=== PATIENT | male | born 1955 | race Caucasian/White ===

== ENCOUNTER 2022-09-11 15:06 | Inpatient (IN) | payer MEDICARE, OTHER ==
--- NOTE | 2022-09-11 15:26 | ED ---
Chest Pain HPI - General Stated Complaint: poss stemi Time Seen by Provider: 09/11/22 15:13 - History of Present Illness Initial Comments: This patient is a 67-year-old man with history of previous coronary artery disease including CABG, who presents to have evaluation of chest pain. He had an episode on Wednesday which was brief, it did recur the following day and then this morning he had more persistent pain so he went to the other hospital, arriving there at 11 AM. The patient states that he was given 4 aspirin at the other hospital and then after workup was transferred here. He states that his symptoms had resolved after the aspirin. Patient found to have troponin 1.01, was started on heparin. He was not having any accompanying symptoms, no dyspnea, diaphoresis, palpitations or lightheadedness, nausea or vomiting. He states that the symptoms are very similar to what he had in 2001 before his bypass MD Complaint: chest pain -: days(s) Onset: during rest Pain Location: substernal Pain Radiation: none Severity: moderate Quality: heaviness Consistency: intermittent, now resolved Improves With: nothing Worsens With: nothing Treatments Prior to Arrival: aspirin, oxygen - Related Data Home Medications Medication Instructions Recorded Confirmed ALPRAZolam [Xanax] 0.25 mg PO BID PRN 09/11/22 09/11/22 Ascorbic Acid [Vitamin C] 1,000 mg PO BID 09/11/22 09/11/22 Aspirin EC [Ecotrin Low Dose] 81 mg PO HS 09/11/22 09/11/22 Atorvastatin [Lipitor] 40 mg PO DAILY 09/11/22 09/11/22 Clopidogrel [Plavix] 75 mg PO DAILY 09/11/22 09/11/22 Famotidine [Pepcid] 20 mg PO DAILY 09/11/22 09/11/22 Liraglutide [Victoza 3-Jad] 1.2 mg SQ DAILY 09/11/22 09/11/22 Losartan/Hydrochlorothiazide 1 tab PO DAILY 09/11/22 09/11/22 [Losartan-Hctz 100-25 mg Tab] Magnesium 300mg 300 mg PO BID 09/11/22 09/11/22 Metoprolol Succinate (ER) [Toprol 100 mg PO DAILY 09/11/22 09/11/22 Xl] Multivitamin/Iron/Folic Acid 1 tab PO DAILY 09/11/22 09/11/22 [Centrum Complete Multivit Tab] Nitroglycerin Sl Tabs [Nitrostat] 0.4 mg SUBLINGUAL Q5M PRN 09/11/22 09/11/22 Churdan-3 Fatty Acids [Churdan-3] 1,000 mg PO BID 09/11/22 09/11/22 Pioglitazone [Actos] 30 mg PO HS 09/11/22 09/11/22 Ubidecarenone [Coenzyme Q10] 10 mg PO DAILY 09/11/22 09/11/22 Vitamin B Complex 1 cap PO DAILY 09/11/22 09/11/22 Zinc Gluconate [Zinc] 50 mg PO BID 09/11/22 09/11/22 glyBURIDE [Diabeta] 1.25 mg PO BID-W/MEALS 09/11/22 09/11/22 metFORMIN HCL [Glucophage] 500 mg PO QID 09/11/22 09/11/22 Allergies Allergy/AdvReac Type Severity Reaction Status Date / Time No Known Allergies Allergy Verified 09/11/22 16:14 Review of Systems ROS Statement: Those systems with pertinent positive or pertinent negative responses have been documented in the HPI. ROS Other: All systems not noted in ROS Statement are negative. Constitutional: Denies: fever, chills Respiratory: Denies: cough, dyspnea Cardiovascular: Reports: chest pain. Denies: palpitations, orthopnea, edema, syncope Gastrointestinal: Denies: abdominal pain, nausea, vomiting, diarrhea Genitourinary: Denies: dysuria, hematuria Musculoskeletal: Denies: back pain Skin: Denies: rash Neurological: Denies: headache, weakness EKG Findings - EKG Results: EKG: interpreted by ERMD, sinus rhythm (Rate 79 bpm) - Blocks, Schuyler, Hypertrophy, ST Abn: AV and intraventricular conduction: intraventricular conduction delay QRS axis and voltage: left axis deviation (-30 to -90) Repolarization changes or abnormalities: ST or T wave suggestive of ischemia (Lateral ST-T wave inversion) General Exam General appearance: alert, in no apparent distress Head exam: Present: atraumatic, normocephalic Eye exam: Present: normal appearance. Absent: scleral icterus, conjunctival injection Neck exam: Present: normal inspection Respiratory exam: Present: normal lung sounds bilaterally. Absent: respiratory distress, wheezes, rales, rhonchi, stridor Cardiovascular Exam: Present: regular rate, normal rhythm, normal heart sounds. Absent: systolic murmur, diastolic murmur, rubs, gallop GI/Abdominal exam: Present: soft. Absent: distended, tenderness, guarding, rebound, rigid, mass, pulsatile mass Extremities exam: Present: normal inspection, normal capillary refill. Absent: pedal edema, calf tenderness Back exam: Present: normal inspection. Absent: CVA tenderness (R), CVA tenderness (L) Neurological exam: Present: alert Skin exam: Present: warm, dry, intact, normal color. Absent: rash Course Vital Signs 09/11/22 15:23 Temperature 98.2 F Pulse Rate 81 Respiratory 18 Rate Blood Pressure 143/77 O2 Sat by Pulse 96 Oximetry Chest Pain MDM - MDM This patient is a 67-year-old man transferred from another hospital to have further cardiology evaluation and treatment. The patient's troponin here is similar to the previous. The case had been discussed with cardiology shortly after arrival and they would like to continue heparin and will see the patient. Case also discussed with admitting physician. Patient had chest x-ray, 1 view, which I interpreted as showing no acute infiltrate, pneumothorax, or congestive heart failure. Was pt. sent in by a medical professional or institution (, PA, PIT AND AUXILIARIES SUPERVISOR, urgent care, hospital, or fdc...) When possible be specific @ -[No] Did you speak to anyone other than the patient for history (EMS, parent, family, police, friend...)? What history was obtained from this source @ -[No] Did you review nursing and triage notes (agree or disagree)? Why? @ -[I reviewed and agree with nursing and triage notes] Were old charts reviewed (outside hosp., previous admission, EMS record, old EKG, old radiological studies, urgent care reports/EKG's, fdc records)? Report findings @ -[ I reviewed the transfer records as well Differential Diagnosis (chest pain, altered mental status, abdominal pain women, abdominal pain men, vaginal bleeding, weakness, fever, dyspnea, syncope, headache, dizziness, GI bleed, back pain, seizure, CVA, palpatations, mental health, musculoskeletal)? @ - Differential Chest Pain: Stable Angina, Unstable Angina, STEMI, NSTEMI Aortic Dissection, Pneumothorax, Musculoskeletal, Esophageal Spasm GERD, Cholecystitis, Pancreatitis, Zoster, this is not meant to be an all-inclusive list. EKG interpreted by me (3pts min.). @ -[As above] X-rays interpreted by me (1pt min.). @ -[As above CT interpreted by me (1pt min.). @ -[None done] U/S interpreted by me (1pt. min.). @ -[None done] What testing was considered but not performed or refused? (CT, X-rays, U/S, labs)? Why? @ -[None] What meds were considered but not given or refused? Why? @ -[None] Did you discuss the management of the patient with other professionals (professionals i.e. Dr., PA, PIT AND AUXILIARIES SUPERVISOR, lab, RT, psych nurse, social media community manager, engineering programmer, teacher, returning officer, family service caseworker)? Give summary @ -[Case discussed with the operator bearer systems and with the admitting physician Was smoking cessation discussed for >3mins.? @ -[No] Was critical care preformed (if so, how long)? @ -[yes, 30 minutes Were there social determinants of health that impacted care today? How? (Homelessness, low income, unemployed, alcoholism, drug addiction, transportation, low edu. Level, literacy, decrease access to med. care, fci, rehab)? @ -[No] Was there de-escalation of care discussed even if they declined (Discuss DNR or withdrawal of care, Hospice)? DNR status @ -[No] What co-morbidities impacted this encounter? (DM, HTN, Smoking, COPD, CAD, Cancer, CVA, ARF, Chemo, Hep., AIDS, mental health diagnosis, sleep apnea, morbid obesity)? @ -[None] Was patient admitted / discharged? Hospital course, mention meds given and route, prescriptions, significant lab abnormalities, going to OR and other pertinent info. @ -[Admitted Undiagnosed new problem with uncertain prognosis? @ -[No] Drug Therapy requiring intensive monitoring for toxicity (Heparin, Nitro, Insulin, Cardizem)? @ -[No] Were any procedures done? @ -[No] Diagnosis/symptom? @ -[Acute NSTEMI, uncomplicated Acute, or Chronic, or Acute on Chronic? @ -[default] Uncomplicated (without systemic symptoms) or Complicated (systemic symptoms)? @ -[default] Side effects of treatment? @ -[No] Exacerbation, Progression, or Severe Exacerbation? @ -[No] Poses a threat to life or bodily function? How? (Chest pain, [place], DC, pneumonia, PE, COPD, DKA, ARF, appy, cholecystitis, CVA, Diverticulitis, Homicidal, Suicidal, threat to staff... and all critical care pts) @ -[yes Critical Care Time Critical Care Time: Yes (30 minutes) Disposition Clinical Impression: NSTEMI (non-ST elevated myocardial infarction) Disposition: ADMITTED IP TO THIS HOSP Condition: Stable Instructions (If sedation given, give patient instructions): Chest Pain (ED) Is patient prescribed a controlled substance at d/c from ED?: No Referrals: Nonstaff,Physician [Primary Care Provider] - 1-2 days
[2022-09-11] MEDS ORDERED: HEPARIN SODIUM 1,000 UN/ML (10ML VL) IV PRN (16:01)
--- NOTE | 2022-09-11 16:06 | XR ---
EXAMINATION TYPE: XR chest 1V portable DATE OF EXAM: 09/11/2022 3:58 PM COMPARISON: None TECHNIQUE: XR chest 1V portable Portable AP radiograph of the chest. CLINICAL INDICATION:Male, 67 years old with history of chest pain; FINDINGS: Lungs/Pleura: There is no evidence of pleural effusion, focal consolidation, or pneumothorax. Pulmonary vascularity: Unremarkable. Heart/mediastinum: Cardiomediastinal silhouette is enlarged. Musculoskeletal: No acute osseous pathology. Midline sternotomy wires are noted. Other findings: None IMPRESSION: Cardiomegaly without evidence for acute process.
[2022-09-11 16:07] LABS: INR 0.9 (<1.2); Partial Thromboplastin Time 30.3 sec (22.0-30.0); Prothrombin Time 9.9 sec (9.0-12.0)
[2022-09-11 16:10] LABS: Albumin 4.6 g/dL (3.5-5.0); Calcium 10.1 mg/dL (8.4-10.2); Magnesium 1.8 mg/dL (1.6-2.3); Potassium 4.4 mmol/L (3.5-5.1); Total Bilirubin 0.5 mg/dL (0.2-1.3); Total Protein 7.6 g/dL (6.3-8.2)
[2022-09-11 16:15] LABS: Basophils # (A) 0.1 k/uL (0-0.2); Basophils % (A) 1 %; Eosinophils # (A) 0.1 k/uL (0-0.7); Eosinophils % (A) 2 %; HCT 39.5 % (39.0-53.0); Lymphocytes # (A) 2.1 k/uL (1.0-4.8); Lymphocytes % (A) 31 %; MCH 31.2 pg (25.0-35.0); MCHC 35.4 g/dL (31.0-37.0); MCV 88.3 fL (80.0-100.0); Mean Platelet Volume 8.2; Monocytes # (A) 0.5 k/uL (0-1.0); Monocytes % (A) 7 %; Neutrophils # (A) 3.8 k/uL (1.3-7.7); Neutrophils % (A) 55 %; Platelet Count 277 k/uL (150-450); RBC 4.48 m/uL (4.30-5.90); RDW 13.7 % (11.5-15.5); WBC 6.9 k/uL (3.8-10.6)
[2022-09-11] MEDS: HEPARIN SOD,PORK IN 0.45% NACL 25,000 UNIT in 0.45% NACL 1 250ML.BAG IV SCH (16:16)
[2022-09-11] MEDS ORDERED: NITROGLYCERIN SL TABS 0.4 MG TAB SUBLINGUAL PRN (16:57)
[2022-09-11] MEDS ORDERED: ALPRAZolam 0.25 MG TAB PO PRN (16:59)
[2022-09-11] MEDS: metFORMIN 500 MG TAB PO SCH ×2 (18:32→21:00)
[2022-09-11 18:49] VITALS: RESP 16
[2022-09-11 19:48] LABS: Glucose,Whole Blood 139 mg/dL (70-110)
[2022-09-11] MEDS: ASCORBIC ACID 500 MG TAB PO SCH (20:59)
[2022-09-11] MEDS: MAGNESIUM OXIDE 400 MG TAB PO SCH (21:00)
[2022-09-11] MEDS: PIOGLITAZONE 30 MG TAB PO SCH (21:00)
[2022-09-11] MEDS ORDERED: NON FORMULARY DRUG (Aspirin Ec 81 MG Tablet) PO SCH (21:00)
[2022-09-12 05:59] LABS: Basophils # (A) 0.1 k/uL (0-0.2); Basophils % (A) 1 %; Eosinophils # (A) 0.2 k/uL (0-0.7); Eosinophils % (A) 3 %; HCT 38.4 % (39.0-53.0); HGB 13.3 gm/dL (13.0-17.5); Lymphocytes # (A) 2.3 k/uL (1.0-4.8); Lymphocytes % (A) 34 %; MCHC 34.7 g/dL (31.0-37.0); MCV 89.3 fL (80.0-100.0); Mean Platelet Volume 7.6; Monocytes # (A) 0.5 k/uL (0-1.0); Monocytes % (A) 8 %; Neutrophils # (A) 3.5 k/uL (1.3-7.7); Neutrophils % (A) 51 %; Platelet Count 240 k/uL (150-450); RDW 13.6 % (11.5-15.5); WBC 6.8 k/uL (3.8-10.6)
[2022-09-12 06:07] LABS: Glucose,Whole Blood 154 mg/dL (70-110)
[2022-09-12 06:07] LABS: Partial Thromboplastin Time 37.6 sec (22.0-30.0); Prothrombin Time 10.5 sec (9.0-12.0)
[2022-09-12] MEDS: ASPIRIN 325 MG TAB PO SCH (08:32)
[2022-09-12] MEDS: CLOPIDOGREL 75 MG TAB PO SCH (08:32)
[2022-09-12] MEDS: ASCORBIC ACID 500 MG TAB PO SCH ×2 (08:32→20:44)
[2022-09-12] MEDS: ZINC SULFATE 220 MG CAP PO SCH (08:32)
[2022-09-12] MEDS: METOPROLOL SUCCINATE (ER) 100 MG TAB.ER.24H PO SCH (08:32)
[2022-09-12] MEDS: ATORVASTATIN 40 MG TAB PO SCH (08:32)
[2022-09-12] MEDS: FAMOTIDINE 20 MG TAB PO SCH (08:32)
[2022-09-12] MEDS: NON FORMULARY DRUG (Liraglutide [Victoza 3-Pak] 0.6 MG/0.1 ML Ml) SQ SCH (08:33)
[2022-09-12] MEDS: MAGNESIUM OXIDE 400 MG TAB PO SCH ×2 (08:33→20:44)
[2022-09-12] MEDS: metFORMIN 500 MG TAB PO SCH ×2 (08:33→12:53)
[2022-09-12] MEDS: LOSARTAN-HCTZ 50-12.5 MG 1 EACH TAB PO SCH (08:34)
[2022-09-12] MEDS ORDERED: ALPRAZolam 0.25 MG TAB PO PRN (08:53)
[2022-09-12] MEDS ORDERED: ATORVASTATIN 40 MG TAB PO STA (08:53)
[2022-09-12] MEDS ORDERED: NITROGLYCERIN SL TABS 0.4 MG TAB SUBLINGUAL PRN ×2 (08:53→12:59)
[2022-09-12] MEDS ORDERED: ASPIRIN 325 MG TAB PO STA (08:53)
[2022-09-12] MEDS ORDERED: ALPRAZolam 0.5 MG TAB PO PRN (08:53)
--- NOTE | 2022-09-12 09:11 | P.CRDCN ---
History of Present Illness Consult date: 09/12/22 Consult reason: chest pain Chief complaint: chest pains History of present illness: History of present illness: This pleasant 67-year-old male with significant past medical history of CABG in 2001, CAD with 3 stents since his bypass surgery most recent was last October 2021, hypertension, diabetes, hyperlipidemia who was transferred from outside hospital for chest pain and elevated troponins. He reports that he began having chest pressure 3 days ago that occurred at rest. He then had continued recurrence for the past 2 days with yesterday's episode lasting for a couple hours and did not resolve until he was given aspirin in the emergency department. He does state that this chest pain is similar to before he had his CABG. He also believes that one of his CABG vessels with occluded. All of his heart care was done at [facility]. Troponins elevated at 0.645, 1.010, 0.963. EKG shows sinus rhythm with ST depressions in the lateral leads. Chest x-ray reveals cardiomegaly without evidence for acute process. Currently he denies any chest pain, shortness of breath, palpitations, dizziness, syncope. REVIEW OF SYSTEMS: No fever or chills. No cough or expectoration. No diaphoresis. Patient denies headache, dizziness, blurred vision, double vision. Patient denies any stomach discomfort. No nausea, vomiting. No hematochezia. No hematemesis. Denies any black stools or blood in his stools. Denies dysuria or hematuria. No muscle weakness or numbness. No chest pain or pressure. PHYSICAL EXAMINATION: This is a 67 year-old female in no apparent distress at the time of my examination. HEENT: Head is atraumatic, normocephalic. Pupils are equal, round. Sclerae anicteric. Conjunctivae are clear. Mucous membranes of the mouth are moist. Neck is supple. There is no jugular venous distention. No carotid bruit is heard. CHEST EXAMINATION: Lungs are clear to auscultation. No chest wall tenderness is noted on palpation or with deep breathing. HEART EXAMINATION: Heart regular rate and rhythm. S1, S2 heard. No murmurs, gallops or rub. ABDOMEN: Soft, nontender. Bowel sounds are heard. EXTREMITIES: 2+ peripheral pulses with no evidence of peripheral edema and no calf tenderness noted. NEUROLOGIC EXAMINATION: Patient is awake, alert and oriented x3. IMPRESSION AND PLAN: 1. NSTEMI 2. Chest pains 3. CAD s/p CABG and PCI x3 4. Hypertension 5. Diabetes type 2 PLAN: We will request records from [facility]. This pain is concerning for unstable angina. Plan to proceed with heart catheterization to eval for new blockages. Risks and benefits discussed with patient and he agrees to proceed. We will check an echo to assess heart function and structure. Continue heparin drip at this time. Continue current medications. Nothing by mouth for procedure. Further recommendations post heart cath. I am dictating on behalf of Dr. Kar Lafleur's history/physical and assessme nt/plan. Past Medical History Past Medical History: Diabetes Mellitus, Hyperlipidemia, Hypertension Additional Past Medical History / Comment(s): sleep apne History of Any Multi-Drug Resistant Organisms: None Reported Past Surgical History: Coronary Bypass/CABG, Heart Catheterization With Stent Past Anesthesia/Blood Transfusion Reactions: No Reported Reaction Date of Last Stent Placement:: 11/16 Past Psychological History: No Psychological Hx Reported Smoking Status: Former smoker Past Alcohol Use History: None Reported, Rare Past Drug Use History: None Reported - Past Family History Sister(s) History Unknown: Yes Additional Family Medical History / Comment(s): bypass,diabetic Brother(s) History Unknown: Yes Additional Family Medical History / Comment(s): valve,diabetic Medications and Allergies Home Medications Medication Instructions Recorded Confirmed Type ALPRAZolam [Xanax] 0.25 mg PO BID PRN 09/11/22 09/11/22 History Ascorbic Acid [Vitamin C] 1,000 mg PO BID 09/11/22 09/11/22 History Aspirin EC [Ecotrin Low Dose] 81 mg PO HS 09/11/22 09/11/22 History Atorvastatin [Lipitor] 40 mg PO DAILY 09/11/22 09/11/22 History Clopidogrel [Plavix] 75 mg PO DAILY 09/11/22 09/11/22 History Famotidine [Pepcid] 20 mg PO DAILY 09/11/22 09/11/22 History Liraglutide [Victoza 3-Jad] 1.2 mg SQ DAILY 09/11/22 09/11/22 History Losartan/Hydrochlorothiazide 1 tab PO DAILY 09/11/22 09/11/22 History [Losartan-Hctz 100-25 mg Tab] Magnesium 300mg 300 mg PO BID 09/11/22 09/11/22 History Metoprolol Succinate (ER) [Toprol 100 mg PO DAILY 09/11/22 09/11/22 History Xl] Multivitamin/Iron/Folic Acid 1 tab PO DAILY 09/11/22 09/11/22 History [Centrum Complete Multivit Tab] Nitroglycerin Sl Tabs [Nitrostat] 0.4 mg SUBLINGUAL Q5M PRN 09/11/22 09/11/22 History Nelson-3 Fatty Acids [Nelson-3] 1,000 mg PO BID 09/11/22 09/11/22 History Pioglitazone [Actos] 30 mg PO HS 09/11/22 09/11/22 History Ubidecarenone [Coenzyme Q10] 10 mg PO DAILY 09/11/22 09/11/22 History Vitamin B Complex 1 cap PO DAILY 09/11/22 09/11/22 History Zinc Gluconate [Zinc] 50 mg PO BID 09/11/22 09/11/22 History glyBURIDE [Diabeta] 1.25 mg PO BID-W/MEALS 09/11/22 09/11/22 History metFORMIN HCL [Glucophage] 500 mg PO QID 09/11/22 09/11/22 History Allergies Allergy/AdvReac Type Severity Reaction Status Date / Time No Known Allergies Allergy Verified 09/11/22 16:14 Physical Exam Vitals: Vital Signs Temp Pulse Pulse Resp BP BP Pulse Ox 09/12/22 08:00 77 16 140/71 96 09/12/22 03:11 98.2 F 83 16 146/75 96 09/12/22 00:00 98.1 F 84 16 125/69 95 09/11/22 19:44 98.0 F 95 16 160/75 94 L 09/11/22 18:49 97.8 F 86 16 114/66 96 09/11/22 15:23 98.2 F 81 18 143/77 96 Intake and Output 09/11/22 09/12/22 09/12/22 22:59 06:59 14:59 Intake Total 64.833 95.764 Balance 64.833 95.764 Intake: Intake, IV Titration 64.833 95.764 Amount Heparin Sod,Pork in 0.45% 64.833 95.764 NaCl 25,000 unit In 0.45 % NaCl 1 250ml.bag @ 10. 302 UNITS/KG/HR 10 mls/hr IV .Q24H [facility] Rx#: [id number] Other: Voiding Method Toilet Toilet # Voids 2 Weight 97.2 kg Results 09/12/22 05:40 09/11/22 15:27 Cardiac Enzymes 09/11/22 09/11/22 09/11/22 Range/Units 15:27 15: 17:46 AST 55 (17-59) U/L Troponin I 0.963 H* 1.010 H* (0.000-0.034) ng/mL 09/11/22 Range/Units 21:33 AST (17-59) U/L Troponin I 0.645 H* (0.000-0.034) ng/mL Coagulation 09/11/22 09/11/22 09/12/22 Range/Units 15:27 21:33 05:40 PT 9.9 10.5 (9.0-12.0) sec APTT 30.3 H 28.0 37.6 H (22.0-30.0) sec CBC 09/11/22 09/12/22 Range/Units 15:27 05:40 WBC 6.9 6.8 (3.8-10.6) k/uL RBC 4.48 4.30 (4.30-5.90) m/uL Hgb 14.0 13.3 (13.0-17.5) gm/dL Hct 39.5 38.4 L (39.0-53.0) % Plt Count 277 240 (150-450) k/uL Comprehensive Metabolic Panel 09/11/22 Range/Units 15:27 Sodium 138 (137-145) mmol/L Potassium 4.4 (3.5-5.1) mmol/L Chloride 97 L (98-107) mmol/L Carbon Dioxide 28 (22-30) mmol/L BUN 22 H (9-20) mg/dL Creatinine 1.03 (0.66-1.25) mg/dL Glucose 129 H (74-99) mg/dL Calcium 10.1 (8.4-10.2) mg/dL AST 55 (17-59) U/L ALT 40 (4-49) U/L Alkaline Phosphatase 48 (38-126) U/L Total Protein 7.6 (6.3-8.2) g/dL Albumin 4.6 (3.5-5.0) g/dL Current Medications Generic Name Dose Route Start Last Admin Trade Name Freq PRN Reason Stop Dose Admin Alprazolam 0.25 mg 09/12/22 08:53 Alprazolam 0.25 Mg Tab PO Q6HR PRN Mild Anxiety Alprazolam 0.5 mg 09/12/22 08:53 Alprazolam 0.5 Mg Tab PO Q6HR PRN Moderate Anxiety Ascorbic Acid 1,000 mg 09/11/22 21:00 09/12/22 08:32 Ascorbic Acid 500 Mg Tab PO 1,000 mg BID NAHOMY Administration Aspirin 325 mg 09/12/22 09:00 09/12/22 08:32 Aspirin 325 Mg Tab PO 325 mg DAILY NAHOMY Administration Atorvastatin Calcium 40 mg 09/12/22 09:00 09/12/22 08:32 Atorvastatin 40 Mg Tab PO 40 mg DAILY NAHOMY Administration Clopidogrel Bisulfate 75 mg 09/12/22 09:00 09/12/22 08:32 Clopidogrel 75 Mg Tab PO 75 mg DAILY NAHOMY Administration Famotidine 20 mg 09/12/22 09:00 09/12/22 08:32 Famotidine 20 Mg Tab PO 20 mg DAILY NAHOMY Administration Glipizide 2.5 mg 09/11/22 19:00 09/12/22 06:43 Glipizide 2.5 Mg Tab PO 2.5 mg BID-W/MEALS NAHOMY Administration HCTZ/Losartan Potassium 2 each 09/12/22 09:00 09/12/22 08:34 Losartan-Hctz 50-12.5 Mg 1 Each Tab PO 2 each DAILY NAHOMY Administration Heparin Sodium (Porcine) 0 unit 09/11/22 16:01 09/11/22 22:52 Heparin Sodium 1,000 Un/Ml (10ml Vl) IV 4,000 unit PER PROTOCOL PRN Administration Low PTT Protocol Heparin Sodium/Sodium Chloride 250 mls @ 10 mls/hr 09/11/22 16:15 09/12/22 06 :10 25,000 unit/ Sodium Chloride IV 15.302 units/kg/hr .Q24H NAHOMY 14.853 mls/hr Titration Protocol 10.302 UNITS/KG/HR Heparin Sodium (Porcine) 10, 1,001 mls @ 999 mls/hr 09/13/22 07:00 000 unit/ Sodium Chloride IRRIGATION 09/13/22 23:00 ONCE PRN INTRA-OP Heparin Sodium (Porcine) 2,500 250.5 mls @ 250 mls/hr 09/13/22 07:00 unit/ Sodium Chloride IRRIGATION 09/13/22 23:00 ONCE PRN INTRA-OP Magnesium Oxide 400 mg 09/11/22 21:00 09/12/22 08:33 Magnesium Oxide 400 Mg Tab PO 400 mg BID NAHOMY Administration Metformin HCl 500 mg 09/11/22 18:00 09/12/22 08:33 Metformin 500 Mg Tab PO 500 mg QID NAHOMY Administration Metoprolol Succinate 100 mg 09/12/22 09:00 09/12/22 08:32 Metoprolol Succinate (Er) 100 Mg Tab.Er.24h PO 100 mg DAILY NAHOMY Administration Nitroglycerin 0.4 mg 09/12/22 08:53 Nitroglycerin Sl Tabs 0.4 Mg Tab SUBLINGUAL Q5M PRN Chest Pain Non-Formulary Medication 1.2 mg 09/12/22 09:00 09/12/22 08:33 Liraglutide [Victoza 3-Jad] SQ Not Given DAILY NAHOMY Pioglitazone HCl 30 mg 09/11/22 21:00 09/11/22 21:00 Pioglitazone 30 Mg Tab PO 30 mg HS NAHOMY Administration Zinc Sulfate 220 mg 09/12/22 09:00 09/12/22 08:32 Zinc Sulfate 220 Mg Cap PO 220 mg DAILY NAHOMY Administration Intake and Output 09/11/22 09/12/22 09/12/22 22:59 06:59 14:59 Intake Total 64.833 95.764 Balance 64.833 95.764 Intake: Intake, IV Titration 64.833 95.764 Amount Heparin Sod,Pork in 0.45% 64.833 95.764 NaCl 25,000 unit In 0.45 % NaCl 1 250ml.bag @ 10. 302 UNITS/KG/HR 10 mls/hr IV .Q24H [facility] Rx#: [id number] Other: Voiding Method Toilet Toilet # Voids 2 Weight 97.2 kg 09/12/22 05:40 09/11/22 15:27
[2022-09-12] MEDS: HEPARIN SOD,PORK IN 0.45% NACL 25,000 UNIT in 0.45% NACL 1 250ML.BAG IV SCH (09:13)
[2022-09-12 09:47] LABS: Chol/HDL Ratio 3.17 Ratio; LDL Cholesterol,Calculated 32.9 mg/dL (0.0-131.0)
[2022-09-12] MEDS ORDERED: VERAPAMIL 2.5 MG/ML 2 ML AMP ONE (10:49)
[2022-09-12] MEDS ORDERED: fentaNYL (PF) 50 MCG/ML 2 ML AMP ONE (10:49)
[2022-09-12] MEDS ORDERED: SODIUM CHLORIDE 0.9% 500 ML 500 ML IV ONE (11:20)
[2022-09-12] MEDS: MIDAZOLAM 2 MG/2 ML VIAL IVP ONE ×2 (11:26→11:30)
[2022-09-12] MEDS ORDERED: fentaNYL (PF) 50 MCG/ML 2 ML AMP IVP ONE (11:26)
[2022-09-12] MEDS ORDERED: LIDOCAINE 1% INJ 10MG/ML (5 ML VIAL-PF) SQ ONE (11:28)
[2022-09-12] MEDS ORDERED: VERAPAMIL SYRINGE (5 MG/10 ML) INTRAARTER ONE (11:29)
[2022-09-12] MEDS: HEPARIN SODIUM 1,000 UN/ML (10ML VL) IVP ONE ×3 (11:34→11:56)
[2022-09-12] MEDS ORDERED: IOPAMIDOL-300 100ML BTL INJ ONE (11:50)
[2022-09-12] MEDS ORDERED: SODIUM CHLORIDE 0.9% 1,000 ML IV ONE (11:59)
--- NOTE | 2022-09-12 12:36 | P.PRCINT ---
Percutaneous Coronary Int. - Percutaneous Coronary Intervention Percutaneous Coronary Intervention: PROCEDURES PERFORMED: Left heart catheterization, bilateral coronary angiography, SVG to OM2, SVG to RCA angiography, PCI proximal to mid OM2 with a 2.5 x 12mm Xience RUDOLPH INDICATION: NSTEMI HISTORY: Patient is a pleasant 67-year-old male with history of coronary artery disease status post CABG. Only remaining grafts are SVG to OM 2 and SVG to RCA with JAVIER to LAD known to be occluded as well as SVG to diagonal occluded. Patient presented with chest pain similar to his prior angina and found to have non-STEMI. He did have recent stenting of the anastomosis of the SVG to OM 2 and October 2021. CONSENT:I have discussed the risks, benefits and alternative therapies for the above-mentioned procedure and for both sedation/analgesia as well as necessary blood product administration, if indicated, as they pertain to this patient. The patient has indicated understanding and acceptance of the risks and procedures discussed. PROCEDURE: After the risks, benefits and alternatives of the above mentioned procedure explained in detail with the patient, informed consent was obtained. Patient was taken to the catheterization lab and prepped and draped in usual fashion. 1% lidocaine was used to anesthetize the right radial artery. A 6- [place] sheath was placed in the left radial artery using modified Seldinger technique. Left coronary angiography was performed with a 5-Cam[place] JL 3.5 catheter and right coronary angiography was performed with a 5-[place] JR5 catheter in various views. A 5-[place] FR5 catheter was inserted into the left ventricle and pressure measurements were obtained. SVG to RCA angiography was performed with a multipurpose catheter. SVG to OM 2 angiography was somewhat difficult to perform with subselective shots and therefore a 0.014 wire was placed through a AR2 guide to selectively engage the artery. Angiography showed a 99% on 2 stenosis and therefore intervention was recommended. The decision was made to perform PCI of the OM 2 branch. The 6-Cam[place] AR 2 guide with the help of a guideliner was used to engage the SVG. The 0.014 BMW wire was advanced in the distal OM 2. Balloon angioplasty was performed with a 2.5 x 12 mm balloon. Next a 2.5 x 12 mm Xience RUDOLPH was placed in the proximal to mid OM2, overlapping with the previous stent. The wire was then removed. Final angiograms were performed. Preintervention there is 99% stenosis with DARRYN 2 flow and postintervention there was 0% stenosis with DARRYN 3 flow. The left radial sheath was removed and a TR band was placed with hemostasis achieved. The patient tolerated the procedure well. Patient was transported back to the post catheterization holding area in stable condition. Conscious Sedation: Patient was monitored under the direct supervision of vision of myself for conscious sedation using Versed and fentanyl for a total duration of 54 minutes HEMODYNAMICS: Aorta: 120/2 LVEDP 10 SELECTIVE CORONARY ARTERIOGRAPHY: LEFT MAIN: The left main is a large caliber vessel which bifurcates into the LAD and circumflex. There is ostial left main 60-70% stenosis which is similar to prior report from October 2021. There was dampening of a 5-Cam[place]onian catheter. LEFT ANTERIOR DESCENDING CORONARY ARTERY: LAD is a large caliber vessel which wraps around to the apex. There are patent proximal and mid LAD stents. There are otherwise mild luminal irregularities. There are [id number] collaterals to what appears to be a small marginal or PLV branch. LEFT CIRCUMFLEX CORONARY ARTERY: Left circumflex is 100% occluded proximally. RIGHT CORONARY ARTERY: The right coronary artery is a moderate caliber vessel which gives off a PDA and PLV branch and is the dominant vessel. There is 100% proximal RCA stenosis. JAVIER to LAD: Known to be occluded, not imaged SVG to diagonal: Known to be occluded, not imaged SVG to OM 2: SVG is patent however OM 2 has a 99% stenosis at the distal end of prior stent SVG to RCA: Widely patent with mild luminal irregularities of the PDA and PLV. FINAL IMPRESSION: 1. Severe [place] CAD as described above including 60-70% left main stenosis (similar to prior imaging 11/16), 100% circumflex stenosis, 100% RCA stenosis 2. Patent SVG to OM 2 and SVG to RCA with known occluded JAVIER to LAD and SVG to diagonal branch 3. 99% OM 2 stenosis status post PCI proximal to mid OM2 with a 2.5 x 12mm Xience RUDOLPH 4. Normal left sided filling pressures PLAN: 1. Aggressive risk factor modification per most recent ACC/AHA guidelines. 2. Continue dual antiplatelets with aspirin and Plavix. 3. If still having angina, may consider PCI left main.
[2022-09-12 12:42] LABS: Glucose,Whole Blood 118 mg/dL (70-110)
[2022-09-12] MEDS ORDERED: RX INFO: IV CONTRAST WAS GIVEN 1 EACH MISC MISCELLANE PRN (12:59)
[2022-09-12] MEDS ORDERED: ATROPINE SULFATE 0.1 MG/ML 10ML SYRINGE IV PRN (12:59)
[2022-09-12] MEDS ORDERED: MAG HYDROX/AL HYDROX/SIMETH 30 ML CUP PO PRN (12:59)
[2022-09-12] MEDS ORDERED: ZOLPIDEM 5 MG TAB PO PRN (12:59)
--- NOTE | 2022-09-12 15:51 | CA ---
Transthoracic Echo Report Name: Inocente Donis Age: 67 Gender: M : 1955 Exam Date: 09/12/2022 13:18 Exam Location: [facility] Ht (in): 67 Wt (lb): 214 Ordering Physician: Shelbi Gomez Attending/Referring Phys: Metal Tile Setter Khoa Serrato RDCS Procedure CPT: Indications: NSTEMI, chest pain Technical Quality: Fair Contrast 1: Total Dose (mL): Contrast 2: Total Dose (mL): MEASUREMENTS (Male / Female) Normal Values 2D ECHO LV Diastolic Diameter PLAX 4.5 cm 4.2 - 5.9 / 3.9 - 5.3 cm LV Systolic Diameter PLAX 3.3 cm IVS Diastolic Thickness 1.5 cm 0.6 - 1.0 / 0.6 - 0.9 cm LVPW Diastolic Thickness 1.4 cm 0.6 - 1.0 / 0.6 - 0.9 cm LV Relative Wall Thickness 0.6 RV Internal Dim ED PLAX 2.6 cm LVOT Diameter 2.0 cm LA Systolic Diameter LX 3.7 cm 3.0 - 4.0 / 2.7 - 3.8 cm LV Diastolic Volume MOD BP 101.0 cm??? 67 - 155 / 56 - 104 cm??? LV Systolic Volume MOD BP 53.0 cm??? 22 - 58 / 19 - 49 cm??? LV Ejection Fraction MOD BP 47.5 % >= 55 % LV Diastolic Volume MOD 4C 119.8 cm??? LV Systolic Volume MOD 4C 54.2 cm??? LV Ejection Fraction MOD 4C 54.7 % LV Diastolic Length 4C 8.5 cm LV Systolic Length 4C 7.2 cm LV Diastolic Volume MOD 2C 82.5 cm??? LV Systolic Volume MOD 2C 46.6 cm??? LV Ejection Fraction MOD 2C 43.5 % LV Diastolic Length 2C 8.1 cm LV Systolic Length 2C 6.3 cm Ascending Aorta Diameter 2.6 cm M-MODE Aortic Root Diameter MM 3.3 cm LA Systolic Diameter MM 4.1 cm LA Ao Ratio MM 1.2 MV E Point Septal Separation 1.0 cm AV Cusp Separation MM 1.9 cm DOPPLER AV Peak Velocity 115.4 cm/s AV Peak Gradient 5.3 mmHg AI Peak Velocity 286.6 cm/s AI Peak Gradient 32.9 mmHg AI Pressure Half Time 698.4 ms MV Peak Velocity 84.7 cm/s MV Peak Gradient 2.9 mmHg MV Mean Velocity 55.1 cm/s MV Mean Gradient 1.3 mmHg MV Velocity Time Integral 20.4 cm Mitral E Point Velocity 82.0 cm/s Mitral A Point Velocity 86.5 cm/s Mitral E to A Ratio 0.9 MV Deceleration Time 161.6 ms MV E' Velocity 5.8 cm/s Mitral E to MV E' Ratio 14.2 TR Peak Velocity 204.3 cm/s TR Peak Gradient 16.7 mmHg Right Ventricular Systolic Press 71.7 mmHg PV Peak Velocity 109.4 cm/s PV Peak Gradient 4.8 mmHg FINDINGS Left Ventricle Left ventricular ejection fraction is estimated at 55-60 %.mild concentric left ventricular hypertrophy. Grade 2 diastolic dysfunction. Right Ventricle Normal right ventricular size and function. Right Atrium Normal right atrial size. Left Atrium Normal left atrial size. Mitral Valve Mitral valve thickened. Trace mitral regurgitation Aortic Valve Trileaflet aortic valve. Diffuse thickening (sclerosis) of the aortic valve cusps without reduced excursion. Mild aortic regurgitation. Tricuspid Valve Mild tricuspid regurgitation. Pulmonic Valve Structurally normal pulmonic valve. Pericardium Normal pericardium. No pericardial effusion. Aorta Normal size aortic root and proximal ascending aorta. CONCLUSIONS Left ventricular ejection fraction 55-60% Mild left ventricular hypertrophy Trace mitral regurgitation Mild aortic regurgitation Mild tricuspid regurgitation No pericardial effusion Previewed by: Dr. Kar Lafleur DO (Electronically Signed) Final Date: 12 September 2022 15:51
[2022-09-12 16:38] LABS: Glucose,Whole Blood 121 mg/dL (70-110)
[2022-09-12 20:07] LABS: Glucose,Whole Blood 186 mg/dL (70-110)
--- NOTE | 2022-09-12 20:12 | P.HPIM ---
History of Present Illness H&P Date: 09/11/22 Chief Complaint: poss stemi 67-year-old man with history of previous coronary artery disease including CABG, who presents to have evaluation of chest pain. He had an episode on Wednesday which was brief, it did recur the following day and then this morning he had more persistent pain so he went to the other hospital, arriving there at 11 AM. The patient states that he was given 4 aspirin at the other hospital and then after workup was transferred here. He states that his symptoms had resolved after the aspirin. Patient found to have troponin 1.01, was started on heparin. He was not having any accompanying symptoms, no dyspnea, diaphoresis, palpitations or lightheadedness, nausea or vomiting. He states that the symptoms are very similar to what he had in 2001 before his bypass He does state that this chest pain is similar to before he had his CABG. He also believes that one of his CABG vessels with occluded. All of his heart care was done at [facility]. Troponins elevated at 0.645, 1.010, 0.963. EKG shows sinus rhythm with ST depressions in the lateral leads. Chest x-ray reveals cardiomegaly without evidence for acute process. Currently he denies any chest pain, shortness of breath, palpitations, dizziness, syncope. Review of Systems REVIEW OF SYSTEMS: CONSTITUTIONAL: No fever, no malaise, no fatigue. HEENT: No recent visual problems or hearing problems. Denied any sore throat. CARDIOVASCULAR: No chest pain, orthopnea, PND, no palpitations, no syncope. PULMONARY: No shortness of breath, no cough, no hemoptysis. GASTROINTESTINAL: No diarrhea, no nausea, no vomiting, no abdominal pain. NEUROLOGICAL: No headaches, no weakness, no numbness. HEMATOLOGICAL: Denies any bleeding or petechiae. GENITOURINARY: Denies any burning micturition, frequency, or urgency. MUSCULOSKELETAL/RHEUMATOLOGICAL: Denies any joint pain, swelling, or any muscle pain. ENDOCRINE: Denies any polyuria or polydipsia. The rest of the 14-point review of systems is negative. Past Medical History Past Medical History: Diabetes Mellitus, Hyperlipidemia, Hypertension Additional Past Medical History / Comment(s): sleep apne History of Any Multi-Drug Resistant Organisms: None Reported Past Surgical History: Coronary Bypass/CABG, Heart Catheterization With Stent Past Anesthesia/Blood Transfusion Reactions: No Reported Reaction Date of Last Stent Placement:: 11/16 Past Psychological History: No Psychological Hx Reported Smoking Status: Former smoker Past Alcohol Use History: None Reported, Rare Past Drug Use History: None Reported - Past Family History Sister(s) History Unknown: Yes Additional Family Medical History / Comment(s): bypass,diabetic Brother(s) History Unknown: Yes Additional Family Medical History / Comment(s): valve,diabetic Medications and Allergies Home Medications Medication Instructions Recorded Confirmed Type ALPRAZolam [Xanax] 0.25 mg PO BID PRN 09/11/22 09/11/22 History Ascorbic Acid [Vitamin C] 1,000 mg PO BID 09/11/22 09/11/22 History Aspirin EC [Ecotrin Low Dose] 81 mg PO HS 09/11/22 09/11/22 History Atorvastatin [Lipitor] 40 mg PO DAILY 09/11/22 09/11/22 History Clopidogrel [Plavix] 75 mg PO DAILY 09/11/22 09/11/22 History Famotidine [Pepcid] 20 mg PO DAILY 09/11/22 09/11/22 History Liraglutide [Victoza 3-Jad] 1.2 mg SQ DAILY 09/11/22 09/11/22 History Losartan/Hydrochlorothiazide 1 tab PO DAILY 09/11/22 09/11/22 History [Losartan-Hctz 100-25 mg Tab] Magnesium 300mg 300 mg PO BID 09/11/22 09/11/22 History Metoprolol Succinate (ER) [Toprol 100 mg PO DAILY 09/11/22 09/11/22 History Xl] Multivitamin/Iron/Folic Acid 1 tab PO DAILY 09/11/22 09/11/22 History [Centrum Complete Multivit Tab] Nitroglycerin Sl Tabs [Nitrostat] 0.4 mg SUBLINGUAL Q5M PRN 09/11/22 09/11/22 History [place]-3 Fatty Acids [[place]-3] 1,000 mg PO BID 09/11/22 09/11/22 History Pioglitazone [Actos] 30 mg PO HS 09/11/22 09/11/22 History Ubidecarenone [Coenzyme Q10] 10 mg PO DAILY 09/11/22 09/11/22 History Vitamin B Complex 1 cap PO DAILY 09/11/22 09/11/22 History Zinc Gluconate [Zinc] 50 mg PO BID 09/11/22 09/11/22 History glyBURIDE [Diabeta] 1.25 mg PO BID-W/MEALS 09/11/22 09/11/22 History metFORMIN HCL [Glucophage] 500 mg PO QID 09/11/22 09/11/22 History Allergies Allergy/AdvReac Type Severity Reaction Status Date / Time No Known Allergies Allergy Verified 09/11/22 16:14 Physical Exam Vitals: Vital Signs Temp Pulse Pulse Resp BP BP Pulse Ox 09/11/22 19:44 98.0 F 95 16 160/75 94 L 09/11/22 18:49 97.8 F 86 16 114/66 96 09/11/22: 98.2 F 81 18 143/77 96 Intake and Output 09/11/22 09/11/22 09/11/22 06:59 14:59 22:59 Other: Weight 97.2 kg HEENT: Head is atraumatic, normocephalic. Pupils are equal, round. Sclerae anicteric. Conjunctivae are clear. Mucous membranes of the mouth are moist. Neck is supple. There is no jugular venous distention. No carotid bruit is heard. CHEST EXAMINATION: Lungs are clear to auscultation. No chest wall tenderness is noted on palpation or with deep breathing. HEART EXAMINATION: Heart regular rate and rhythm. S1, S2 heard. No murmurs, gallops or rub. ABDOMEN: Soft, nontender. Bowel sounds are heard. EXTREMITIES: 2+ peripheral pulses with no evidence of peripheral edema and no calf tenderness noted. NEUROLOGIC EXAMINATION: Patient is awake, alert and oriented x3. Results CBC & Chem 7: 09/12/22 05:40 09/11/22 15:27 Labs: Abnormal Lab Results - Last 24 Hours (Table) 09/11/22 09/11/22 09/11/22 Range/Units 15:27 15:27 15:27 APTT 30.3 H (22.0-30.0) sec Chloride 97 L (98-107) mmol/L BUN 22 H (9-20) mg/dL Glucose 129 H (74-99) mg/dL POC Glucose (mg/dL) (70-110) mg/dL Troponin I 0.963 H* (0.000-0.034) ng/mL 09/11/22 09/11/22 Range/Units 17:46 19:46 APTT (22.0-30.0) sec Chloride (98-107) mmol/L BUN (9-20) mg/dL Glucose (74-99) mg/dL POC Glucose (mg/dL) 139 H (70-110) mg/dL Troponin I 1.010 H* (0.000-0.034) ng/mL Thrombosis Risk Factor Assmnt - Choose All That Apply Each Risk Factor Represents 2 Points: Age 61-74 years Thrombosis Risk Factor Assessment Total Risk Factor Score: 2 Thrombosis Risk Factor Assessment Level: Low Risk Assessment and Plan Assessment: 1. Chest pain/non-ST elevation NE - Patient does have history of coronary artery disease; status post CABG and PCI 3 - Patient has been evaluated by cardiology; plan to request medical records from [facility]; patient's presentation is quite suspicious for unstable angina and plan is to proceed with heart catheterization - Patient has received aspirin and has been placed on IV heparin infusion 2. Hypertension; losartanHCTZ 15676 milligrams one tablet daily; Toprol-XL 100 mg daily 3. Hyperlipidemia; Lipitor 40 mg by mouth daily at bedtime 4. Diabetes mellitus type 2; patient takes glyburide and Glucophage at home along with Actos 30 mg daily at bedtime and Victoza 1.2 mg subcu daily; home diabetes regimen has been placed on hold and patient is to have Accu-Cheks every before meals and at bedtime with insulin sliding scale 5. Anxiety; Xanax 0.25 mg twice a day when necessary DVT prophylaxis; SCDs/IV heparin CODE STATUS; full code
--- NOTE | 2022-09-12 20:13 | P.PN ---
Subjective Progress Note Date: 09/12/22 67-year-old man with history of previous coronary artery disease including CABG, who presents to have evaluation of chest pain. He had an episode on Wednesday which was brief, it did recur the following day and then this morning he had more persistent pain so he went to the other hospital, arriving there at 11 AM. The patient states that he was given 4 aspirin at the other hospital and then after workup was transferred here. He states that his symptoms had resolved after the aspirin. Patient found to have troponin 1.01, was started on heparin. He was not having any accompanying symptoms, no dyspnea, diaphoresis, palpitations or lightheadedness, nausea or vomiting. He states that the symptoms are very similar to what he had in 2001 before his bypass He does state that this chest pain is similar to before he had his CABG. He also believes that one of his CABG vessels with occluded. All of his heart care was done at [facility]. Troponins elevated at 0.645, 1.010, 0.963. EKG shows sinus rhythm with ST depressions in the lateral leads. Chest x-ray reveals cardiomegaly without evidence for acute process. Currently he denies any chest pain, shortness of breath, palpitations, dizziness, syncope. -- Patient remains chest pain-free; troponin was monitored closely; patient rem ains on IV heparin - Cardiology on board. Plan for cardiac catheterization with possible PCI as needed Objective - Vital Signs Vital signs: Vital Signs Temp 98.2 F 09/12/22 03:11 Pulse 77 09/12/22 08:00 Resp 16 09/12/22 08:00 BP 140/71 09/12/22 08:00 Pulse Ox 96 09/12/22 08:00 FiO2 Intake & Output 09/11/22 09/12/22 09/12/22 18:59 06:59 18:59 Intake Total 160.597 45.302 Balance 160.597 45.302 Weight 97.2 kg Intake: Intake, IV Titration 160.597 45.302 Amount Heparin Sod,Pork in 0.45% 160.597 45.302 NaCl 25,000 unit In 0.45 % NaCl 1 250ml.bag @ 10. 302 UNITS/KG/HR 10 mls/hr IV .Q24H NAHOMY Rx#: [id number] Other: Voiding Method Toilet # Voids 2 - Exam HEENT: Head is atraumatic, normocephalic. Pupils are equal, round. Sclerae anicteric. Conjunctivae are clear. Mucous membranes of the mouth are moist. Neck is supple. There is no jugular venous distention. No carotid bruit is heard. CHEST EXAMINATION: Lungs are clear to auscultation. No chest wall tenderness is noted on palpation or with deep breathing. HEART EXAMINATION: Heart regular rate and rhythm. S1, S2 heard. No murmurs, gallops or rub. ABDOMEN: Soft, nontender. Bowel sounds are heard. EXTREMITIES: 2+ peripheral pulses with no evidence of peripheral edema and no calf tenderness noted. NEUROLOGIC EXAMINATION: Patient is awake, alert and oriented x3. - Labs CBC & Chem 7: 09/12/22 05:40 09/11/22 15:27 Labs: Abnormal Lab Results - Last 24 Hours (Table) 09/11/22 09/11/22 09/11/22 Range/Units 15:27 15:27 15:27 Hct (39.0-53.0) % APTT 30.3 H (22.0-30.0) sec Chloride 97 L (98-107) mmol/L BUN 22 H (9-20) mg/dL Glucose 129 H (74-99) mg/dL POC Glucose (mg/dL) (70-110) mg/dL Troponin I 0.963 H* (0.000-0.034) ng/mL Triglycerides (0.00-149.00) mg/dL VLDL Cholesterol, Calc (5.00-40.00) mg/dL HDL Cholesterol (40.00-60.00) mg/dL 09/11/22 09/11/22 09/11/22 Range/Units 17:46 19:46 21:33 Hct (39.0-53.0) % APTT (22.0-30.0) sec Chloride (98-107) mmol/L BUN (9-20) mg/dL Glucose (74-99) mg/dL POC Glucose (mg/dL) 139 H (70-110) mg/dL Troponin I 1.010 H* 0.645 H* (0.000-0.034) ng/mL Triglycerides (0.00-149.00) mg/dL VLDL Cholesterol, Calc (5.00-40.00) mg/dL HDL Cholesterol (40.00-60.00) mg/dL 09/12/22 09/12/22 09/12/22 Range/Units 05:40 05:40 05:40 Hct 38.4 L (39.0-53.0) % APTT 37.6 H (22.0-30.0) sec Chloride (98-107) mmol/L BUN (9-20) mg/dL Glucose (74-99) mg/dL POC Glucose (mg/dL) (70-110) mg/dL Troponin I (0.000-0.034) ng/mL Triglycerides 229.00 H (0.00-149.00) mg/dL VLDL Cholesterol, Calc 45.80 H (5.00-40.00) mg/dL HDL Cholesterol 36.30 L (40.00-60.00) mg/dL 09/12/22 Range/Units 06:05 Hct (39.0-53.0) % APTT (22.0-30.0) sec Chloride (98-107) mmol/L BUN (9-20) mg/dL Glucose (74-99) mg/dL POC Glucose (mg/dL) 154 H (70-110) mg/dL Troponin I (0.000-0.034) ng/mL Triglycerides (0.00-149.00) mg/dL VLDL Cholesterol, Calc (5.00-40.00) mg/dL HDL Cholesterol (40.00-60.00) mg/dL Assessment and Plan Assessment: 1. Chest pain/non-ST elevation [place] - Patient does have history of coronary artery disease; status post CABG and PCI 3 - Patient has been evaluated by cardiology; plan to request medical records from [facility]; patient's presentation is quite suspicious for unstable angina and plan is to proceed with heart catheterization - Patient has received aspirin and has been placed on IV heparin infusion 2. Hypertension; losartanHCTZ 51160 milligrams one tablet daily; Toprol-XL 100 mg daily 3. Hyperlipidemia; Lipitor 40 mg by mouth daily at bedtime 4. Diabetes mellitus type 2; patient takes glyburide and Glucophage at home along with Actos 30 mg daily at bedtime and Victoza 1.2 mg subcu daily; home diabetes regimen has been placed on hold and patient is to have Accu-Cheks every before meals and at bedtime with insulin sliding scale 5. Anxiety; Xanax 0.25 mg twice a day when necessary DVT prophylaxis; SCDs/IV heparin CODE STATUS; full code
[2022-09-12] MEDS: PIOGLITAZONE 30 MG TAB PO SCH (20:44)
[2022-09-13] MEDS: SODIUM CHLORIDE 0.9% 1,000 ML in EMPTY BAG 1 BAG IV SCH ×2 (02:43→12:22)
[2022-09-13 03:35] VITALS: TEMP 97.8
[2022-09-13 06:14] LABS: Glucose,Whole Blood 204 mg/dL (70-110)
[2022-09-13] MEDS ORDERED: HEPARIN SODIUM,PORCINE 2,500 UNIT in SODIUM CHLORIDE 0.9% 250 ML IRRIGATION PRN (07:00)
[2022-09-13] MEDS ORDERED: HEPARIN SODIUM,PORCINE 10,000 UNIT in SODIUM CHLORIDE 0.9% 1,000 ML IRRIGATION PRN (07:00)
[2022-09-13] MEDS: ZINC SULFATE 220 MG CAP PO SCH (08:20)
[2022-09-13] MEDS: ATORVASTATIN 40 MG TAB PO SCH (08:21)
[2022-09-13] MEDS: METOPROLOL SUCCINATE (ER) 100 MG TAB.ER.24H PO SCH (08:21)
[2022-09-13] MEDS: CLOPIDOGREL 75 MG TAB PO SCH (08:21)
[2022-09-13] MEDS: MAGNESIUM OXIDE 400 MG TAB PO SCH (08:21)
[2022-09-13] MEDS: ASPIRIN 325 MG TAB PO SCH (08:21)
[2022-09-13] MEDS: ASCORBIC ACID 500 MG TAB PO SCH (08:21)
[2022-09-13] MEDS: LOSARTAN-HCTZ 50-12.5 MG 1 EACH TAB PO SCH (08:22)
[2022-09-13] MEDS: FAMOTIDINE 20 MG TAB PO SCH (08:22)
[2022-09-13 08:29] LABS: Potassium 5.1 mmol/L (3.5-5.1)
[2022-09-13 08:30] LABS: African American GFR (CKD) >90 (>60 ml/min/1.73 sqM); Anion Gap 13 mmol/L; Blood Urea Nitrogen 21 mg/dL (9-20); Calcium 9.7 mg/dL (8.4-10.2); Carbon Dioxide 24 mmol/L (22-30); Chloride 98 mmol/L (98-107); Glucose 312 mg/dL (74-99); Non-African American GFR(CKD) 87 (>60 ml/min/1.73 sqM); Sodium 135 mmol/L (137-145)
[2022-09-13 09:05] LABS: Basophils % (A) 1 %; Eosinophils # (A) 0.1 k/uL (0-0.7); Eosinophils % (A) 2 %; HCT 38.8 % (39.0-53.0); HGB 13.5 gm/dL (13.0-17.5); Lymphocytes # (A) 1.6 k/uL (1.0-4.8); Lymphocytes % (A) 23 %; MCH 31.1 pg (25.0-35.0); MCHC 34.7 g/dL (31.0-37.0); MCV 89.4 fL (80.0-100.0); Mean Platelet Volume 8.8; Monocytes # (A) 0.7 k/uL (0-1.0); Monocytes % (A) 10 %; Neutrophils # (A) 4.5 k/uL (1.3-7.7); Neutrophils % (A) 63 %; Platelet Count 243 k/uL (150-450); RBC 4.34 m/uL (4.30-5.90); RDW 13.2 % (11.5-15.5); WBC 7.1 k/uL (3.8-10.6)
--- NOTE | 2022-09-13 10:56 | P.PN ---
Subjective Progress Note Date: 09/13/22 History of present illness: This pleasant 67-year-old male with significant past medical history of CABG in 2001, CAD with 3 stents since his bypass surgery most recent was last October 2021, hypertension, diabetes, hyperlipidemia who was transferred from outside hospital for chest pain and elevated troponins. He reports that he began having chest pressure 3 days ago that occurred at rest. He then had continued recurrence for the past 2 days with yesterday's episode lasting for a couple hours and did not resolve until he was given aspirin in the emergency department. He does state that this chest pain is similar to before he had his CABG. He also believes that one of his CABG vessels with occluded. All of his heart care was done at [facility]. Troponins elevated at 0.645, 1.010, 0.963. EKG shows sinus rhythm with ST depressions in the lateral leads. Chest x-ray reveals cardiomegaly without evidence for acute process. Currently he denies any chest pain, shortness of breath, palpitations, dizziness, syncope. 09/12 Heart cath revealed 99% OM 2 stenosis and he is status post PCI proximal to mid OM 2. Patient is out of bed in chair, doing well. Denies any chest pain or shortness of breath. Right radial site intact, no hematoma, mild swelling, tenderness appropriate. Echo with EF 5560%, mild aortic regurgitation, mild tricuspid regurgitation. PHYSICAL EXAMINATION: This is a 67 year-old female in no apparent distress at the time of my examination. HEENT: Head is atraumatic, normocephalic. Pupils are equal, round. Sclerae anicteric. Conjunctivae are clear. Mucous membranes of the mouth are moist. Neck is supple. There is no jugular venous distention. No carotid bruit is heard. CHEST EXAMINATION: Lungs are clear to auscultation. No chest wall tenderness is noted on palpation or with deep breathing. HEART EXAMINATION: Heart regular rate and rhythm. S1, S2 heard. No murmurs, gallops or rub. ABDOMEN: Soft, nontender. Bowel sounds are heard. EXTREMITIES: 2+ peripheral pulses with no evidence of peripheral edema and no calf tenderness noted. right radial site with no hematoma, mild swelling, distal pulse palpable. NEUROLOGIC EXAMINATION: Patient is awake, alert and oriented x3. IMPRESSION AND PLAN: status post PCI proximal to mid OM 2, 09/12/22 NSTEMI Chest pains CAD s/p CABG and PCI x3 Hypertension Diabetes type 2 PLAN: Continue DAPT with aspirin and plavix. If still having angina may consider PCI of left main in the future. Cleared for discharge to home from cardiology standpoint. Continue current medications. Follow up with cardiology in 1 week. I am dictating on behalf of Dr. Kar Lafleur's history/physical and assessment/plan. Objective - Vital Signs Vital signs: Vital Signs Temp 97.8 F 09/13/22 03:35 Pulse 73 09/13/22 08:00 Resp 16 09/13/22 08:00 BP 157/78 09/13/22 08:00 Pulse Ox 96 09/13/22 08:00 FiO2 Intake & Output 09/12/22 09/13/22 09/13/22 18:59 06:59 18:59 Intake Total 685.302 240 Output Total 2 Balance 685.302 -2 240 Intake: IV 400 Intake, IV Titration 45.302 Amount Heparin Sod,Pork in 0.45% 45.302 NaCl 25,000 unit In 0.45 % NaCl 1 250ml.bag @ 10. 302 UNITS/KG/HR 10 mls/hr IV .Q24H [facility] Rx#: [id number] Oral 240 240 Output: Urine 2 Other: Voiding Method Toilet Toilet # Bowel Movements 0 - Labs CBC & Chem 7: 09/13/22 07:51 09/13/22 07:51 Labs: Abnormal Lab Results - Last 24 Hours (Table) 09/12/22 09/12/22 09/12/22 Range/Units 12:40 16:36 20:06 Hct (39.0-53.0) % Sodium (137-145) mmol/L BUN (9-20) mg/dL Glucose (74-99) mg/dL POC Glucose (mg/dL) 118 H 121 H 186 H (70-110) mg/dL 09/13/22 09/13/22 09/13/22 Range/Units 06:12 07:51 07:51 Hct 38.8 L (39.0-53.0) % Sodium 135 L (137-145) mmol/L BUN 21 H (9-20) mg/dL Glucose 312 H (74-99) mg/dL POC Glucose (mg/dL) 204 H (70-110) mg/dL
[2022-09-13 11:31] LABS: Glucose,Whole Blood 174 mg/dL (70-110)
[2022-09-13] MEDS: NON FORMULARY DRUG (Liraglutide [Victoza 3-Pak] 0.6 MG/0.1 ML Ml) SQ SCH (12:14)
[2022-09-13 12:23] VITALS: BP 123/63; PULSE 65
== END 2022-09-13 14:39 | disposition home or self-care (01) | DRG 247 ==
LOC: EC 15:06 → 3SCARD 16:57
PROVIDERS: ADMIT Hospitalist; ATTEND Hospitalist
PROC: B2131ZZ Fluoroscopy of Multiple Coronary Artery Bypass Grafts using Low Osmolar Contrast (ICD-10-PCS; principal; 2022-09-12 10:30)
PROC: 4A023N7 Measurement of Cardiac Sampling and Pressure, Left Heart, Percutaneous Approach (ICD-10-PCS; principal; 2022-09-12 10:30)
PROC: B2111ZZ Fluoroscopy of Multiple Coronary Arteries using Low Osmolar Contrast (ICD-10-PCS; principal; 2022-09-12 10:30)
PROC: B2181ZZ Fluoroscopy of Left Internal Mammary Bypass Graft using Low Osmolar Contrast (ICD-10-PCS; principal; 2022-09-12 10:30)
PROC: 027034Z Dilation of Coronary Artery, One Artery with Drug-eluting Intraluminal Device, Percutaneous Approach (ICD-10-PCS; principal; 2022-09-12 10:30)
PROC: 5A09357 Assistance with Respiratory Ventilation, Less than 24 Consecutive Hours, Continuous Positive Airway Pressure (ICD-10-PCS; 2022-09-12 10:30)
DX: I21.4 Non-ST elevation (NSTEMI) myocardial infarction (principal); I25.710 Atherosclerosis of autologous vein coronary artery bypass graft(s) with unstable angina pectoris; I11.9 Hypertensive heart disease without heart failure; I25.720 Atherosclerosis of autologous artery coronary artery bypass graft(s) with unstable angina pectoris; E11.9 Type 2 diabetes mellitus without complications; I25.110 Atherosclerotic heart disease of native coronary artery with unstable angina pectoris; Z28.310 Unvaccinated for COVID-19; E78.5 Hyperlipidemia, unspecified; F41.9 Anxiety disorder, unspecified; Z79.82 Long term (current) use of aspirin; Z79.02 Long term (current) use of antithrombotics/antiplatelets; Z79.84 Long term (current) use of oral hypoglycemic drugs; Z79.85 Long-term (current) use of injectable non-insulin antidiabetic drugs; Z79.899 Other long term (current) drug therapy; Z95.1 Presence of aortocoronary bypass graft; Z95.5 Presence of coronary angioplasty implant and graft; Z87.891 Personal history of nicotine dependence
CPT/HCPCS: 36415; 71045; 80048; 80053; 80061; 83735; 84484; 85025; 85610; 85730; 93005; 93306; 93459; 96361; 96365; 96375; 99291